=== PATIENT | female | born 1970 | race African-American/Black ===

== ENCOUNTER 2017-04-12 17:57 | Emergency (ER) | payer SELFPAY ==
[~2017-04-12] VITALS: Ht 162.6 cm; Wt 75.7 kg
[2017-04-12] MEDS ORDERED: PROAIR HFA8.5 GM INH (18:11)
[2017-04-12 18:36] VITALS: BP 124/76
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
[2017-04-12] MEDS ORDERED: ROBAXIN-750750 MG PO (18:42)
[2017-04-12] MEDS ORDERED: SOMA250 MG PO (18:42)
[2017-04-12] MEDS ORDERED: IBUPROFEN600 MG ORAL (18:42)
[2017-04-12 18:47] VITALS: BP 124/76
== END 2017-04-12 18:56 | disposition home or self-care (01) ==
LOC: EMR 18:39
DX: S16.1XXA Strain of muscle, fascia and tendon at neck level, initial encounter (principal); V43.52XA Car driver injured in collision with other type car in traffic accident, initial encounter; Y92.410 Unspecified street and highway as the place of occurrence of the external cause; M62.830 Muscle spasm of back; J45.909 Unspecified asthma, uncomplicated
CPT/HCPCS: 99283